=== PATIENT | male | born 1975 | race Asian ===

== ENCOUNTER 2017-03-28 03:16 | Emergency (ER) | payer OTHER ==
[~2017-03-28] VITALS: Ht 170.2 cm; Wt 76.2 kg
[2017-03-28 03:20] VITALS: BP_SYST 134
[2017-03-28 04:14] VITALS: BP_SYST 134
== END 2017-03-28 04:14 ==
LOC: SED 03:16
DX: Z02.89 Encounter for other administrative examinations (principal)
CPT/HCPCS: 99283